=== PATIENT | male | born 1945 | race Caucasian/White ===

== ENCOUNTER 2016-11-12 21:19 | Emergency (ER) | payer BC, MEDICARE, OTHER ==
[2016-11-12] MEDS ORDERED: Lidocaine 1% 20 ML MDV INFILT ONE (21:20)
[2016-11-12] MEDS ORDERED: Diphtheria,Pertussis(Acell),Tetanus Vaccine 0.5 ML SDV IM ONE (21:48)
--- NOTE | 2016-11-12 21:51 | EDM.PDOC ---
ED HPI GENERAL MEDICAL PROBLEM - General Chief Complaint: Laceration Stated Complaint: FINGER LACERATION Time Seen by Provider: 11/12/16 21:30 Source of Information: Reports: Patient, Family, Old Records History Limitations: Reports: No Limitations - History of Present Illness INITIAL COMMENTS - FREE TEXT/NARRATIVE: 71 yo male lacerated his distal R 5th finger at work earlier today. noted lots of bleeding at home and made him come in to be seen. No numbness reported. Uncertain about tetanus. Also, several days ago he thinks he may have dislocated his R 5th finger. Has not had that looked at yet. Onset: Today Onset Date: 11/12/16 Onset Time: 15:00 Duration: Hour(s):, Constant Location: Reports: Upper Extremity, Left Quality: Reports: Dull Severity: Mild Improves with: Reports: Rest Worsens with: Reports: Movement Context: Reports: Trauma (laceration) Associated Symptoms: Reports: Other (R finger recent injury ? dislocation.) Treatments [employer]IV[employer] THER[employer]Y SPECIALIST: Reports: Other (see below) (wrapped at home.) - Related Data Allergies Allergy/AdvReac Type Severity Reaction Status Date / Time No Known Allergies Allergy Verified 12/22/14 23:28 Home Meds: Home Meds NK [No Known Home Meds] 12/22/14 [History] Past Medical History Other HEENT History: wears eyeglasses Other Genitourinary History: prostatectomy - Past Surgical History Other Musculoskeletal Surgeries/Procedures:: Back surgery, ankle replacement R) September 26, 2014 L) April 2014. Current stress fracture to R) ankle Social & Family History - Tobacco Use Smoking Status *Q: Never Smoker Second Hand Smoke Exposure: No - Alcohol Use Days Per Week of Alcohol Use: 1 Number of Drinks Per Day: 1 Total Drinks Per Week: 1 - Recreational Drug Use Recreational Drug Use: No ED ROS GENERAL - Review of Systems Review Of Systems: See Below Constitutional: Reports: No Symptoms Musculoskeletal: Reports: Hand Pain (R 5th finger ? dislocation) Skin: Reports: Wound (laceration L 5th finger) Neurological: Reports: No Symptoms. Denies: Numbness, Paresthesia, Tingling ED EXAM, SKIN/RASH Exam: See Below Exam Limited By: No Limitations General Appearance: Alert, WD/WN, No Apparent Distress Extremities: Joint Swelling (PIP jt of the R 5th finger is deformed and swollen. ) Neurological: Alert, Oriented, CN II-XII Intact, No Motor/Sensory Deficits Psychiatric: Normal Affect, Normal Mood Skin: Warm, Dry, Normal Color, No Rash, Wound/Incision (1.5 cm horiz linear laceration of the distal L index finger. Arteriolar bleeding noted. ) Location, Skin: Upper Extremity, Left Lymphatic: No Adenopathy ED SKIN PROCEDURES - Laceration/Wound Repair Left Anterior Distal Finger Lac/Wound length In cm: 1.5 Appearance: Subcutaneous, Clean Distal NVT: No Tendon Injury, Other (neurological intact, but arteriolar bleeding present. ) Anesthetic Type: Local Local Anesthesia - Lidocaine (Xylocaine): 1% Plain Local Anesthetic Volume: 2cc Skin Prep: Saline Exploration/Debridement/Repair: Other (Tourniquet placed on finger to control bleeding during repair. ) Closed with: Sutures Suture Size: other (5-0) # of Sutures: 7 Suture Type: Nylon Course - Radiology Interpretation Free Text/Narrative:: ? avulsion fx vs. degenerative changes of R 5th finger PIP joint. Departure - Departure Time of Disposition: 22:15 Disposition: Home, Self-Care 01 Condition: Good Clinical Impression: Finger laceration Qualifiers: Encounter type: initial encounter Finger: little finger Damage to nail status: without damage Foreign body presence: without foreign body Laterality: left Qualified Code(s): S61.217A - Laceration without foreign body of left little finger without damage to nail, initial encounter Finger sprain Qualifiers: Encounter type: initial encounter Finger: little finger Sprain of finger site: interphalangeal joint Laterality: right Qualified Code(s): S63.636A - Sprain of interphalangeal joint of right little finger, initial encounter - Discharge Information Referrals: Aditya Elise MD [Primary Care Provider] -
[2016-11-12 23:13] VITALS: BP 159/88
--- NOTE | 2016-11-15 10:56 | CR ---
INDICATION: Injury, pain, laceration. COMPARISON: None. RIGHT 5TH DIGIT SERIES: Mild to marked degenerative osteoarthritis change, most prominent of the 5th proximal, distal interphalangeal joints and 4th proximal interphalangeal joint, and to a lesser degree remainder of proximal interphalangeal joint regions, and metacarpophalangeal joint regions. Moderate heterotopic ossification change dorsal aspect of the 4th and 5th proximal interphalangeal joint regions, predominantly well-corticated. No other acute fracture, dislocation, destructive change. IMPRESSION: 1. 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 2. 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 If clinical suspicion persists for other occult or acute osseous pathology, then follow-up right 5th digit series in 7-10 days can be done for further evaluation. [facility]
== END 2016-11-12 22:22 | disposition home or self-care (01) ==
LOC: FB.ED 21:19
DX: S61.211A Laceration without foreign body of left index finger without damage to nail, initial encounter (principal); S63.636A Sprain of interphalangeal joint of right little finger, initial encounter; X58.XXXA Exposure to other specified factors, initial encounter
CPT/HCPCS: 12001; 73140; 90471; 90715; 99283; A4217; 12011